=== PATIENT | female | born 1965 | race Caucasian/White ===

== ENCOUNTER 2016-11-24 10:56 | Emergency (ER) | payer OTHER, SELFPAY ==
[~2016-11-24] VITALS: Ht 167.6 cm; Wt 65.0 kg
[2016-11-24] MEDS ORDERED: LEVO50TA5 PO (12:26)
[2016-11-24] MEDS ORDERED: SODIUM CHLORIDE 0.9% 1,000ML IVBOLUS ONE (12:30)
[2016-11-24] MEDS ORDERED: ONDANSETRON 2MG/ML, 2ML IVPush ONE (12:30)
[2016-11-24] MEDS ORDERED: SODIUM CHLORIDE FLUSH 10ML SYR IVF ONE (12:30)
[2016-11-24 13:06] LABS: HEMATOCRIT 41.2 % (34.6-47.8); HEMOGLOBIN 13.9 g/dL (11.7-16.4); WHITE BLOOD COUNT 10.2 x10^3/uL (3.4-10)
[2016-11-24] MEDS ORDERED: ONDANSETRON 2MG/ML, 2ML ONE (13:17)
[2016-11-24 13:18] LABS: BLOOD UREA NITROGEN 9 mg/dL (7-18)
[2016-11-24 13:22] LABS: ASPARTATE AMINO TRANSFERASE 20 U/L (15-37)
[2016-11-24 13:37] LABS: PATH.CAST-FLAG NOT PRESENT; SPERM-FLAG NOT PRESENT; SRC-FLAG NOT PRESENT; XTAL-FLAG NOT PRESENT; YLC-FLAG NOT PRESENT
[2016-11-24] MEDS ORDERED: HYDROmorphone 1 MG/ML, 1ML IVPush PRN (14:00)
[2016-11-24] MEDS ORDERED: HYDROmorphone 1 MG/ML, 1ML ONE (14:00)
[2016-11-24 14:11] VITALS: BP 155/86
== END 2016-11-24 14:47 | disposition home or self-care (01) ==
LOC: ED 14:20
DX: K85.90 Acute pancreatitis without necrosis or infection, unspecified (principal); R31.29 Other microscopic hematuria
CPT/HCPCS: 36415; 74000; 76700; 80053; 81001; 83690; 85025; 96361; 96374; 96375; 99285; J1170; J2405; J7030

== ENCOUNTER → 2017-01-07 | Outpatient (CLI) | payer OTHER ==
[~2017-01-07] MED LIST: LEVO50TA5 PO
== END | disposition home or self-care (01) ==
LOC: CFH 09:24
PROVIDERS: ATTEND Internal Medicine Gastroenterology
DX: K82.0 Obstruction of gallbladder (principal); K85.90 Acute pancreatitis without necrosis or infection, unspecified; Q45.3 Other congenital malformations of pancreas and pancreatic duct
CPT/HCPCS: 74181